=== PATIENT | female | born 1965 | race African-American/Black ===

== ENCOUNTER 2016-09-15 12:53 | Inpatient (IN) | payer OTHER ==
[2016-09-15 15:48] VITALS: BMI 29.2
--- NOTE | 2016-09-15 16:35 | HP ---
COWS - Scale Resting Pulse: 1= [place] 81-100 Sweatin=Flushed/Facial Moisture Restless Observation: 0= Sits Still Pupil Size: 1= Pupils >than Normal Bone or Joint Aches: 2= Severe Diffuse Aches Runny Nose/ Eye Tearin= Nasal Congestion GI Upset > 30mins: 1= Stomach Cramp Tremor Observation: 2= Slight Tremor Visible Yawning Observation: 0= None Anxiety or Irritability: 2=Irritable/Anxious Goose Flesh Skin: 3=Piloerection COWS Score: 15 Admission ROS [facility] - [facility] Chief Complaint: withdrawal sx Allergies/Adverse Reactions: Allergies Allergy/AdvReac Type Severity Reaction Status Date / Time Pork/Porcine Containing Allergy Severe Vomiting Verified 09/15/16 16:27 Products History of Present Illness: 50 years old female with long history of opiate and nicotine dependence, 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, bipolar ii, is admitted to detox Exam Limitations: No Limitations - Ebola screening Have you traveled outside of the country in the last 21 days: No Have you had contact with anyone from an Ebola affected area: No Have you been sick,other than usual withdrawal symptoms: No Do you have a fever: No - Review of Systems Constitutional: Chills, Night Sweats, Changes in sleep EENT: reports: Blurred Vision (needed eye glasses), Hearing Loss (left ear) Respiratory: reports: No Symptoms reported Cardiac: reports: No Symptoms Reported GI: reports: Nausea, Poor Fluid Intake, Abdominal cramping : reports: No Symptoms Reported Musculoskeletal: reports: Back Pain, Joint Pain, Muscle Pain, Neck Pain Integumentary: reports: No Symptoms Reported Neuro: reports: Tremors Endocrine: reports: No Symptoms Reported Hematology: reports: No Symptoms Reported Psychiatric: reports: Judgement Intact, Orientated x3, other (bipolar ii) Other Systems: Reviewed and Negative Patient History - Patient Medical History Hx Anemia: Yes (no med) Hx Asthma: No Hx Chronic Obstructive Pulmonary Disease (COPD): Yes Hx Cancer: No Hx Cardiac Disorders: No Hx Congestive Heart Failure: No Hx Hypertension: No Hx Hypercholesterolemia: No Hx Pacemaker: No HX Cerebrovascular Accident: No Hx Seizures: No Hx Dementia: No Hx Diabetes: No Hx Gastrointestinal Disorders: No Hx Liver Disease: No Hx Genitourinary Disorders: No Hx Sexually Transmitted Disorders: No (Syphilis 1987 & Tx) Hx Renal Disease (ESRD): No Hx Thyroid Disease: No Hx Human Immunodeficiency Virus (HIV): No (negative) Hx Hepatitis C: No Hx Depression: Yes Hx Suicide Attempt: Yes (Suicide attempt with Pills Jul 2015) Hx Bipolar Disorder: Yes Hx Schizophrenia: No - Patient Surgical History Past Surgical History: Yes Hx Neurologic Surgery: No Hx Cataract Extraction: No Hx Cardiac Surgery: No Hx Lung Surgery: No Hx Breast Surgery: No Hx Breast Biopsy: No Hx Abdominal Surgery: No Hx Appendectomy: No Hx Cholecystectomy: No Hx Genitourinary Surgery: No Hx Section: No Hx Orthopedic Surgery: Yes (rotator right shoulder 2004/right knee arthoscopic) Hx Hysterectomy: No Anesthesia Reaction: No - PPD History Previous Implant?: Yes Documented Results: Negative w/proof Implanted On Prior [facility] Admission?: Yes Date: 10/11/15 Results: 0 PPD to be Administered?: Yes - Reproductive History Patient is a Female of Child Bearing Age (11 -55 yrs old): Yes Last Menstrual Period: 09/21/15 Patient : No - Smoking Cessation Smoking history: Current every day smoker Have you smoked in the past 12 months: Yes Aproximately how many cigarettes per day: 10 Cigars Per Day: 0 Hx Chewing Tobacco Use: No Initiated information on smoking cessation: Yes 'Breaking Loose' booklet given: 09/15/16 - Substance & Tx. History Hx Alcohol Use: No Hx Substance Use: Yes Substance Use Type: Cocaine, Heroin, Opiates Hx Substance Use Treatment: Yes - Substances Abused Heroin Route: Inhalation Frequency: Daily Amount used: 10 BAGS Age of first use: 20 Date of Last Use: 09/15/16 Family Disease History - Family Disease History Family Disease History: Heart Disease: Mother, Other: Father ( ) Admission Physical Exam S - Vital Signs Vital Signs: Vital Signs - 24 hr 09/15/16 15:46 Temperature 96.4 F L Pulse Rate 90 Respiratory 18 Rate Blood Pressure 163/90 - Physical General Appearance: Yes: Nourished, Appropriately Dressed, Mild Distress, Tremorous, Irritable, Sweating, Anxious HEENTM: Yes: Hearing grossly Normal (left ear hard of hearing), Normal ENT Inspection, Normocephalic, Normal Voice Breast: Yes: Breasts Symetrical Abdominal: Yes: Non Tender, Soft Genitourinary: Yes: Within Normal Limits Back: Yes: Normal Inspection Musculoskeletal: Yes: full range of Motion, Gait Steady, Back pain Extremities: Yes: Normal Inspection, Normal Range of Motion, Non-Tender, Tremors Neurological: Yes: Fully Oriented, Alert, Motor Strength 5/5, Normal Response, Other Integumentary: Yes: Warm Lymphatic: Yes: Within Normal Limits - Diagnostic (1) Cocaine dependence Current Visit: Yes Status: Chronic Qualifiers: Substance use status: uncomplicated Qualified Code(s): F14.20 - Cocaine dependence, uncomplicated (2) Nicotine dependence Current Visit: Yes Status: Acute Qualifiers: Nicotine product type: cigarettes Substance use status: in withdrawal Qualified Code(s): F17.213 - Nicotine dependence, cigarettes, with withdrawal (3) Opioid dependence with withdrawal Current Visit: Yes Status: Acute (4) History of anemia Current Visit: Yes Status: Chronic Comment: lab pending (5) Bipolar II disorder Current Visit: Yes Status: Suspected Comment: lithium (6) Arthritis Current Visit: Yes Status: Chronic Comment: knees shoulders left ankle swell relieve by elevation of the leg Cleared for Admission [facility] - Detox or Rehab [facility] Level of Care: Medically Managed Detox Regimen/Protocol: Methadone [facility] Breath Alcohol Content Breath Alcohol Content: 0 Vital Signs - Vital Signs Vital Signs Refused: No Temperature: 96.4 F Temperature Source: Oral Pulse Rate: 90 Respiratory Rate: 18 Blood Pressure: 163/90 BP Location: Left Arm Blood Pressure Position: Sitting - Height Height: 5 ft 2 in - Weight Weight: 160 lb Weight Measurement Method: Standing Scale Body Mass Index (BMI): 29.2 - Bowel Function Bowel Movement: Yes Urine Pregancy Test - Result Urine Test Results: Negative- NO Line Present Urine Drug Screen - Control Is Test Valid: Yes - Results Drug Screen Negative: No Urine Drug Screen Results: DAKSHA-Cocaine, OPI-Opiates, OXY-Oxycodone
[2016-09-15] MEDS ORDERED: MAGNESIUM CITRATE 300 ML BOTTLE PO PRN (16:48)
[2016-09-15] MEDS ORDERED: LOPERAMIDE HCL 2 MG CAPSULE PO PRN (16:48)
[2016-09-15] MEDS ORDERED: MAG HYDROX/AL HYDROX/SIMETH 30 ML UNIT-DOSE CUP PO PRN (16:48)
[2016-09-15] MEDS ORDERED: NICOTINE POLACRILEX 2 MG GUM BUC PRN (16:48)
[2016-09-15] MEDS ORDERED: guaiFENesin/D-METHORPHAN HB 10 ML UNIT-DOSE CUPS PO PRN (16:48)
[2016-09-15] MEDS ORDERED: IBUPROFEN 400 MG TABLET (FP) PO PRN (16:48)
[2016-09-15] MEDS ORDERED: ACETAMINOPHEN 325 MG TABLET (FP) PO PRN (16:48)
[2016-09-15] MEDS ORDERED: MENTHOL/PHENOL 1 EACH UD MM PRN (16:48)
[2016-09-15] MEDS ORDERED: P-EPHED 60MG/TRIPROLIDI 2.5MG TABLET PO PRN (16:48)
[2016-09-15] MEDS ORDERED: MAGNESIUM HYDROX 2400MG/30ML ORAL SUSPENSION 30 ML CUP PO PRN (16:48)
[2016-09-15] MEDS ORDERED: METHADONE HCL 10 MG TABLET (FOR DETOX USE ONLY) PO ONE ×2 (18:15→23:00)
[2016-09-15] MEDS: diazePAM 5 MG TABLET PO PRN (18:27)
[2016-09-15 20:30] LABS: URINE APPEARANCE CLEAR; URINE BILIRUBIN NEGATIVE (NEGATIVE); URINE COLOR YELLOW; URINE GLUCOSE (UA) NEGATIVE (NEGATIVE); URINE KETONE NEGATIVE (NEGATIVE); URINE LEUK ESTERASE NEGATIVE (NEGATIVE); URINE NITRITE NEGATIVE (NEGATIVE); URINE PROTEIN NEGATIVE (NEGATIVE); URINE UROBILINOGEN NEGATIVE E.U./dl (0.2-1.0)
[2016-09-15 20:40] LABS: URINE BLOOD 1+ (NEGATIVE)
[2016-09-15 20:45] LABS: URINE MUCUS RARE; URINE RBC 15 /hpf (0-3); URINE WBC 14 /hpf (3-5)
[2016-09-15] MEDS ORDERED: diphenhydrAMINE HCL 50 MG CAPSULE PO PRN (22:00)
[2016-09-15] MEDS: THIAMINE HCL 100 MG TABLET (FP) PO SCH (22:20)
--- NOTE | 2016-09-16 07:56 | CONSULT ---
[facility] Psychiatric Consult - Data Date of interview: 09/16/16 Admission source: [facility] Identifying data: This is 50 years old female with Bipolar disorder history, intoxicated with: Opioids anhd Nicotine Substance Abuse History: - Smoking Cessation. Smoking history: Current every day smoker. Have you smoked in the past 12 months: Yes. Aproximately how many cigarettes per day: 10. Cigars Per Day: 0. Hx Chewing Tobacco Use: No. Initiated information on smoking cessation: Yes. 'Breaking Loose' booklet given : 09/15/16. - Substance & Tx. History. Hx Alcohol Use: No. Hx Substance Use: Yes. Substance Use Type: Cocaine, Heroin, Opiates. Hx Substance Use Treatment : Yes. - Substances Abused. Heroin. Route: Inhalation. Frequency: Daily. Amount used: 10 BAGS. Age of first use: 20. Date of Last Use: 09/15/16 Medical History: Arthritid history, MMTP 20mg per day, Psychiatric History: Patient reports history of Bipolar disorder, reports most recent psychioatric admission on [facility] 10 years ago, reports currently taking: Buspar 15mg po bid. Trazodone 100mg po qhs. Ambien 10mg po qhs. Topamax 25mg poqd. Lamictal 50mg poqd Physical/Sexual Abuse/Trauma History: Denies Additional Comment: Buspar 15mg po bid. Trazodone 100mg po qhs. Ambien 10mg po qhs. Topamax 25mg poqd. Lamictal 50mg poqd Mental Status Exam - Mental Status Exam Alert and Oriented to: Person Patient Appearance: Unkempt Mood: Sad Affect: Flat Patient Behavior: Sedated Speech Pattern: Delayed Voice Loudness: Mildly Soft/Quiet Thought Process: Goal Oriented Thought Disorder: Being Controlled Hallucinations: Denies Suicidal Ideation: Denies Homicidal Ideation: Denies Insight/Judgement: Fair Sleep: Difficulty falling asleep Appetite: Fair Muscle strength/Tone: Mild Hypotonicity Gait/Station: Shuffling Additional Comments: Buspar 15mg po bid. Trazodone 100mg po qhs. Ambien 10mg po qhs. Topamax 25mg poqd. Lamictal 50mg poqd Psychiatric Findings - Problem List ([place] 1, 2,3) (1) Nicotine dependence Current Visit: Yes Status: Acute Qualifiers: Nicotine product type: cigarettes Substance use status: in withdrawal Qualified Code(s): F17.213 - Nicotine dependence, cigarettes, with withdrawal (2) Opioid dependence with withdrawal Current Visit: Yes Status: Acute (3) Cocaine dependence Current Visit: Yes Status: Chronic Qualifiers: Substance use status: uncomplicated Qualified Code(s): F14.20 - Cocaine dependence, uncomplicated (4) Alcohol dependence Current Visit: No Status: Chronic Qualifiers: Substance use status: uncomplicated Qualified Code(s): F10.20 - Alcohol dependence, uncomplicated (5) Bipolar I disorder, most recent episode depressed Current Visit: No Status: Chronic (6) Methadone maintenance therapy patient Current Visit: No Status: Chronic Comment: last dose given on 10/15/15 with 40mg daily. dose verified (7) Opioid dependence Current Visit: No Status: Chronic - Initial Treatment Plan Initial Treatment Plan: Buspar 15mg po bid. Trazodone 100mg po qhs. Ambien 10mg po qhs. Topamax 25mg poqd. Lamictal 50mg poqd
[2016-09-16] MEDS ORDERED: METHADONE HCL 10 MG TABLET (FOR DETOX USE ONLY) PO ONE (10:00)
[2016-09-16 10:15] LABS: MCH 35.1 pg (25.7-33.7); MCHC 34.3 g/dl (32.0-36.0); MEAN CELL VOLUME 102.5 fl (80-96); PLATELET COUNT 251 K/MM3 (134-434); RDW 13.4 % (11.6-15.6); WHITE BLOOD COUNT 6.5 K/mm3 (4.0-10.0)
[2016-09-16] MEDS: diazePAM 5 MG TABLET PO PRN ×2 (10:27→18:05)
[2016-09-16] MEDS: PRENATAL VITAMINS W/ FOLIC ACID TABLET (FP) PO SCH (10:27)
[2016-09-16] MEDS: cloNIDine HCL 0.1 MG TABLET PO PRN (10:27)
[2016-09-16] MEDS: CYCLOBENZAPRINE HCL 10 MG TABLET (FP) PO PRN (10:27)
--- NOTE | 2016-09-16 10:27 | PN ---
BHS COWS - Scale Resting Pulse: 1= [place] 81-100 Sweatin=Flushed/Facial Moisture Restless Observation: 0= Sits Still Pupil Size: 0= Normal to Room Light Bone or Joint Aches: 2= Severe Diffuse Aches Runny Nose/ Eye Tearin= Nasal Congestion GI Upset > 30mins: 1= Stomach Cramp Tremor Observation of Outstretched Hands: 2= Slight Tremor Visible Yawning Observation: 2= >3x During Session Anxiety or Irritability: 2=Irritable/Anxious Goose Flesh Skin: 3=Piloerection COWS Score: 16 BHS Progress Note (SOAP) Subjective: irritable agitation sweats body aches tired interrupted sleep Objective: 09/16/16 10:25 Vital Signs Temperature 98.4 F 09/16/16 09:46 Pulse Rate 86 09/16/16 09:46 Respiratory Rate 18 09/16/16 09:46 Blood Pressure 141/75 09/16/16 09:46 O2 Sat by Pulse Oximetry (%) Laboratory Tests 09/15/16 19:45 Urine Color Yellow Urine Appearance Clear Urine pH 6.0 Ur Specific [place] 1.021 Urine Protein Negative Urine Glucose (UA) Negative Urine Ketones Negative Urine Blood 1+ H Urine Nitrite Negative Urine Bilirubin Negative Urine Urobilinogen Negative Ur Leukocyte Esterase Negative Urine RBC 15 Urine WBC 14 Ur Epithelial Cells Rare Urine Mucus Rare labs pending awake/alert ambulating no acute distress Assessment: 09/16/16 10:26 withdrawal sx Plan: continue detox increase fluids labs pending
[2016-09-16] MEDS: NICOTINE 21 MG/24 HOURS TOPICAL PATCH TD SCH (10:28)
[2016-09-16] MEDS: lamoTRIgine 25 MG TABLET PO SCH (10:28)
[2016-09-16] MEDS: TOPIRAMATE 25 MG TABLET (FP) PO SCH (10:29)
[2016-09-16 10:40] LABS: ALBUMIN 3.5 g/dl (3.4-5.0); ALK PHOS 57 U/L (45-117); ANION GAP 8 (8-16); BILIRUBIN,TOTAL 0.4 mg/dL (0.2-1.0); CALCIUM 8.4 mg/dL (8.5-10.1); CO2 27 mmol/L (21-32); CREATININE 0.7 mg/dL (0.55-1.02); GLUCOSE,RANDOM 87 mg/dL (74-106); SGOT/AST 15 U/L (15-37); SGPT/ALT 18 U/L (12-78); TOT PROT 6.6 g/dl (6.4-8.2)
--- NOTE | 2016-09-16 13:21 | EKG ---
Test Reason : Blood Pressure : / mmHG Vent. Rate : 080 BPM Atrial Rate : 080 BPM P-R Int : 148 ms QRS Dur : 076 ms QT Int : 356 ms P-R-T Axes : 070 031 018 degrees QTc Int : 410 ms NORMAL SINUS RHYTHM NONSPECIFIC T WAVE ABNORMALITY ABNORMAL ECG NO PREVIOUS ECGS AVAILABLE Confirmed by JERI CHAVEZ MD ([id number]) on 09/16/2016 1:21:12 PM Referred By: Confirmed By:JERI CHAVEZ MD
[2016-09-16] MEDS ORDERED: ZOLPIDEM TARTRATE 10 MG TABLET (PARK CARE ONLY) PO PRN (22:00)
[2016-09-16] MEDS: traZODone HCL 100 MG TABLET (FP) PO SCH (22:28)
[2016-09-16] MEDS: THIAMINE HCL 100 MG TABLET (FP) PO SCH (22:29)
[2016-09-17] MEDS ORDERED: diphenhydrAMINE HCL 25 MG CAPSULE (FP) PO ONE (01:04)
[2016-09-17] MEDS: diazePAM 5 MG TABLET PO PRN ×2 (01:05→10:44)
[2016-09-17] MEDS ORDERED: METHADONE HCL 5 MG TABLET (FOR DETOX USE ONLY) PO ONE (10:00)
--- NOTE | 2016-09-17 10:11 | PN ---
BHS COWS - Scale Resting Pulse: 1= [place] 81-100 Sweatin=Flushed/Facial Moisture Restless Observation: 1= Difficult to Sit Still Pupil Size: 0= Normal to Room Light Bone or Joint Aches: 2= Severe Diffuse Aches Runny Nose/ Eye Tearin= Nasal Congestion GI Upset > 30mins: 0= None Tremor Observation of Outstretched Hands: 2= Slight Tremor Visible Yawning Observation: 2= >3x During Session Anxiety or Irritability: 2=Irritable/Anxious Goose Flesh Skin: 0=Smooth Skin COWS Score: 13 BHS Progress Note (SOAP) Subjective: agitation anxiety sweats irritable Objective: 09/17/16 10:10 Vital Signs Temperature 99.1 F 09/17/16 09:29 Pulse Rate 89 09/17/16 09:29 Respiratory Rate 18 09/17/16 09:29 Blood Pressure 130/96 09/17/16 09:29 O2 Sat by Pulse Oximetry (%) Laboratory Tests 09/15/16 09/16/16 09/16/16 19:45 06:00 06:00 WBC 6.5 RBC 3.24 L Hgb 11.4 D Hct 33.2 MCV 102.5 H MCHC 34.3 RDW 13.4 Plt Count 251 MPV 9.0 Sodium 140 Potassium 4.0 Chloride 105 Carbon Dioxide 27 Anion Gap 8 BUN 17 D Creatinine 0.7 Creat Clearance w eGFR > 60 Random Glucose 87 Calcium 8.4 L Total Bilirubin 0.4 AST 15 D ALT 18 D Alkaline Phosphatase 57 D Total Protein 6.6 Albumin 3.5 Urine Color Yellow Urine Appearance Clear Urine pH 6.0 Ur Specific [place] 1.021 Urine Protein Negative Urine Glucose (UA) Negative Urine Ketones Negative Urine Blood 1+ H Urine Nitrite Negative Urine Bilirubin Negative Urine Urobilinogen Negative Ur Leukocyte Esterase Negative Urine RBC 15 Urine WBC 14 Ur Epithelial Cells Rare Urine Mucus Rare RPR Titer T.pallidum Ab ([facility]) 09/16/16 06:00 WBC RBC Hgb Hct MCV MCHC RDW Plt Count MPV Sodium Potassium Chloride Carbon Dioxide Anion Gap BUN Creatinine Creat Clearance w eGFR Random Glucose Calcium Total Bilirubin AST ALT Alkaline Phosphatase Total Protein Albumin Urine Color Urine Appearance Urine pH Ur Specific [place] Urine Protein Urine Glucose (UA) Urine Ketones Urine Blood Urine Nitrite Urine Bilirubin Urine Urobilinogen Ur Leukocyte Esterase Urine RBC Urine WBC Ur Epithelial Cells Urine Mucus RPR Titer Reactive 1:2 H T.pallidum Ab ([facility]) Previously reactive awake/alert ambulating no acute distress Assessment: 09/17/16 10:10 withdrawal sx Plan: continue detox increase fluids
[2016-09-17] MEDS: cloNIDine HCL 0.1 MG TABLET PO PRN (10:44)
[2016-09-17] MEDS: lamoTRIgine 25 MG TABLET PO SCH (10:44)
[2016-09-17] MEDS: PRENATAL VITAMINS W/ FOLIC ACID TABLET (FP) PO SCH (10:44)
[2016-09-17] MEDS: CYCLOBENZAPRINE HCL 10 MG TABLET (FP) PO PRN (10:44)
[2016-09-17] MEDS: NICOTINE 21 MG/24 HOURS TOPICAL PATCH TD SCH (10:45)
[2016-09-17] MEDS: TOPIRAMATE 25 MG TABLET (FP) PO SCH (10:45)
[2016-09-17] MEDS: traZODone HCL 100 MG TABLET (FP) PO SCH (22:16)
[2016-09-17] MEDS: THIAMINE HCL 100 MG TABLET (FP) PO SCH (22:16)
--- NOTE | 2016-09-18 09:57 | PN ---
S Progress Note (SOAP) Subjective: ALERT,IRRITABLE,ANXIOUS,INTERRUPTED SLEEP,TREMOR,INTERRUPTED SLEEP Objective: 09/18/16 09:56 Vital Signs Temperature 98.1 F 09/18/16 06:00 Pulse Rate 96 H 09/18/16 06:00 Respiratory Rate 18 09/18/16 06:00 Blood Pressure 92/69 09/18/16 06:00 O2 Sat by Pulse Oximetry (%) Assessment: 09/18/16 09:56 WITHDRAWAL SYMPTOM Plan: CONTINUE DETOX
[2016-09-18] MEDS ORDERED: METHADONE HCL 5 MG TABLET (FOR DETOX USE ONLY) PO ONE (10:00)
--- NOTE | 2016-09-18 10:00 | PN ---
S Progress Note Note: PATIENT DID NOT WANT TO COMPLETE TREATMENT,SIGNED RELEASE AMA,STATED SHE IS NOT READY TO COMPLETE TREATMENT,SEEN BY COUNSELOR
--- NOTE | 2016-09-18 10:02 | DS ---
[facility] Detox Discharge Summary Admission Date: 09/15/16 Discharge Date: 09/18/16 - History Present History: Cocaine Dependence, Opioid Dependence Additional Comments: PATIENT DID NOT WANT TO COMPLETE TREATMENT,SEEN BY COUNSELOR,SIGNED RELEASE AMA Pertinent Past History: NICOTINE DEPENDENCE BI[POLAR 2 DISORDER ARTHRITIS - Physical Exam Results Vital Signs: Vital Signs Temperature 98.1 F 09/18/16 06:00 Pulse Rate 96 H 09/18/16 06:00 Respiratory Rate 18 09/18/16 06:00 Blood Pressure 92/69 09/18/16 06:00 O2 Sat by Pulse Oximetry (%) Pertinent Admission Physical Exam Findings: WITHDRAWAL SYMPTOM - Medication Discharge Medications: Ambulatory Orders Topiramate [Topamax] 25 mg PO DAILY 10/17/15 Zolpidem Tartrate [Ambien] 10 mg PO DAILY 10/17/15 Buspirone HCl [Buspar -] 20 mg PO BID #120 tablet 11/08/15 Lamotrigine [Lamictal -] 50 mg PO DAILY #60 tablet 11/08/15 Trazodone HCl [Desyrel -] 100 mg PO HS #30 tablet 11/08/15 Buspirone HCl [Buspar -] 15 mg PO BID #60 tablet 09/16/16 Lamotrigine [Lamictal -] 50 mg PO DAILY #30 tablet 09/16/16 Topiramate [Topamax -] 25 mg PO DAILY #30 tablet 09/16/16 Trazodone HCl [Desyrel -] 100 mg PO HS #30 tablet 09/16/16 Zolpidem Tartrate [Ambien] 0 mg PO HS #14 tablet MDD 10 09/16/16 Zolpidem Tartrate [Ambien] 0 mg PO HS #14 tablet MDD 10 09/16/16 Zolpidem Tartrate [Ambien] 0 mg PO HS #14 tablet MDD 10 09/16/16 Zolpidem Tartrate [Ambien] 10 mg PO HS #14 tablet MDD 10 09/16/16 - AMA Did Patient Leave Against Medical Advice: Yes
[2016-09-18] MEDS: TOPIRAMATE 25 MG TABLET (FP) PO SCH (10:06)
[2016-09-18] MEDS: cloNIDine HCL 0.1 MG TABLET PO PRN (10:06)
[2016-09-18] MEDS: PRENATAL VITAMINS W/ FOLIC ACID TABLET (FP) PO SCH (10:06)
[2016-09-18] MEDS: lamoTRIgine 25 MG TABLET PO SCH (10:06)
[2016-09-18] MEDS: CYCLOBENZAPRINE HCL 10 MG TABLET (FP) PO PRN (10:26)
[2016-09-18] MEDS: NICOTINE 21 MG/24 HOURS TOPICAL PATCH TD SCH (10:26)
[2016-09-18] MEDS: diazePAM 5 MG TABLET PO PRN (10:26)
[2016-09-18 11:16] VITALS: BP 106/63; PULSE 92; TEMP 98.2
[2016-09-19] MEDS ORDERED: METHADONE HCL 10 MG TABLET (FOR DETOX USE ONLY) PO ONE (10:00)
[2016-09-20] MEDS ORDERED: METHADONE HCL 5 MG TABLET (FOR DETOX USE ONLY) PO ONE (06:00)
== END 2016-09-18 11:19 | disposition left against medical advice (07) | DRG 770 ==
LOC: YASAS 12:53 → Y6N 17:21
PROVIDERS: ADMIT Internal Medicine Addiction Medicine; ATTEND Internal Medicine Addiction Medicine
PROC: HZ2ZZZZ Detoxification Services for Substance Abuse Treatment (ICD-10-PCS; principal; 2016-09-18)
DX: F11.23 Opioid dependence with withdrawal (principal); F10.20 Alcohol dependence, uncomplicated; F14.20 Cocaine dependence, uncomplicated; F31.89 Other bipolar disorder
CPT/HCPCS: 36415; 80053; 80178; 81003; 81015; 85027; 86593; 86780; 93005; 93010

== ENCOUNTER 2016-12-01 14:04 | Inpatient (IN) | payer OTHER ==
[2016-12-01 16:46] VITALS: BMI 27.1
[2016-12-01] MEDS ORDERED: METHADONE HCL 10 MG TABLET (FOR DETOX USE ONLY) PO ONE ×2 (19:37→23:00)
[2016-12-01] MEDS ORDERED: guaiFENesin/D-METHORPHAN HB 10 ML UNIT-DOSE CUPS PO PRN (19:37)
[2016-12-01] MEDS ORDERED: NICOTINE POLACRILEX 2 MG GUM BUC PRN (19:37)
[2016-12-01] MEDS ORDERED: MAGNESIUM HYDROX 2400MG/30ML ORAL SUSPENSION 30 ML CUP PO PRN (19:37)
[2016-12-01] MEDS ORDERED: MENTHOL/PHENOL 1 EACH UD MM PRN (19:37)
[2016-12-01] MEDS ORDERED: MAG HYDROX/AL HYDROX/SIMETH 30 ML UNIT-DOSE CUP PO PRN (19:37)
[2016-12-01] MEDS ORDERED: LOPERAMIDE HCL 2 MG CAPSULE PO PRN (19:37)
[2016-12-01] MEDS ORDERED: ACETAMINOPHEN 325 MG TABLET (FP) PO PRN (19:37)
[2016-12-01] MEDS ORDERED: diphenhydrAMINE HCL 50 MG CAPSULE PO PRN (19:37)
[2016-12-01] MEDS ORDERED: P-EPHED 60MG/TRIPROLIDI 2.5MG TABLET PO PRN (19:37)
[2016-12-01] MEDS ORDERED: IBUPROFEN 400 MG TABLET (FP) PO PRN (19:37)
[2016-12-01] MEDS ORDERED: MAGNESIUM CITRATE 300 ML BOTTLE PO PRN (19:37)
--- NOTE | 2016-12-01 19:37 | HP ---
[id number] [id number] Restless Observation: 1= Difficult to Sit Still Pupil Size: 0= Normal to Room Light Bone or Joint Aches: 2= Severe Diffuse Aches Runny Nose/ Eye Tearin= Runny Nose/Eyes GI Upset > 30mins: 2= Nausea/Diarrhea Tremor Observation: 2= Slight Tremor Visible Yawning Observation: 1= 1-2x During Session Anxiety or Irritability: 2=Irritable/Anxious Goose Flesh Skin: 0=Smooth Skin COWS Score: 14 Admission ROS S - HPI Chief Complaint: withdrawal sx Allergies/Adverse Reactions: Allergies Allergy/AdvReac Type Severity Reaction Status Date / Time Pork/Porcine Containing Allergy Severe Vomiting Verified 12/01/16 17:06 Products History of Present Illness: 51 years old female with long history of opiate nicotine cocaine dependence denies medical issue has depression is admitted to detox Exam Limitations: No Limitations - Ebola screening Have you traveled outside of the country in the last 21 days: No Have you had contact with anyone from an Ebola affected area: No Have you been sick,other than usual withdrawal symptoms: No Do you have a fever: No - Review of Systems Constitutional: Chills, Changes in sleep, Weight Stable EENT: reports: Other (eye glasses) Respiratory: reports: No Symptoms reported Cardiac: reports: No Symptoms Reported GI: reports: Nausea, Poor Fluid Intake, Abdominal cramping : reports: No Symptoms Reported Musculoskeletal: reports: Back Pain, Joint Pain, Muscle Pain, Neck Pain Integumentary: reports: No Symptoms Reported Neuro: reports: Tremors Endocrine: reports: No Symptoms Reported Hematology: reports: No Symptoms Reported Psychiatric: reports: Judgement Intact, Orientated x3, Depressed Other Systems: Reviewed and Negative Patient History - Patient Medical History Hx Anemia: Yes (no med) Hx Asthma: No Hx Chronic Obstructive Pulmonary Disease (COPD): No Hx Cancer: No Hx Cardiac Disorders: No Hx Congestive Heart Failure: No Hx Hypertension: No Hx Hypercholesterolemia: No Hx Pacemaker: No HX Cerebrovascular Accident: No Hx Seizures: No Hx Dementia: No Hx Diabetes: No Hx Gastrointestinal Disorders: No Hx Liver Disease: No Hx Genitourinary Disorders: No Hx Sexually Transmitted Disorders: No (Syphilis 1988 & Tx) Hx Renal Disease (ESRD): No Hx Thyroid Disease: No Hx Human Immunodeficiency Virus (HIV): No (negative) Hx Hepatitis C: No Hx Depression: No Hx Suicide Attempt: Yes (Suicide attempt with Pills Jul 2015) Hx Bipolar Disorder: Yes Hx Schizophrenia: No - Patient Surgical History Past Surgical History: Yes Hx Neurologic Surgery: No Hx Cataract Extraction: No Hx Cardiac Surgery: No Hx Lung Surgery: No Hx Breast Surgery: No Hx Breast Biopsy: No Hx Abdominal Surgery: No Hx Appendectomy: No Hx Cholecystectomy: No Hx Genitourinary Surgery: No Hx Section: No Hx Orthopedic Surgery: Yes (rotator right shoulder 2004/right knee arthoscopic) Hx Hysterectomy: No Other Surgical History: R knee arthroscopic sx Anesthesia Reaction: No - PPD History Previous Implant?: Yes Documented Results: Negative w/proof Implanted On Prior R Admission?: Yes Date: 09/17/16 Results: 0 PPD to be Administered?: No - Reproductive History Patient is a Female of Child Bearing Age (11 -55 yrs old): Yes Last Menstrual Period: 10/28/16 Patient : No - Smoking Cessation Smoking history: Current every day smoker Have you smoked in the past 12 months: Yes Aproximately how many cigarettes per day: 10 Cigars Per Day: 0 Hx Chewing Tobacco Use: No Initiated information on smoking cessation: Yes 'Breaking Loose' booklet given: 12/01/16 - Substance & Tx. History Hx Alcohol Use: No Hx Substance Use: Yes Substance Use Type: Cocaine, Opiates Hx Substance Use Treatment: Yes - Substances Abused Heroin Route: Inhalation Frequency: Daily Amount used: 10 BAGS Age of first use: 20 Date of Last Use: 12/01/16 Family Disease History - Family Disease History Family Disease History: Heart Disease: Mother, Other: Father ( ) Admission Physical Exam S - Vital Signs Vital Signs: Vital Signs - 24 hr 12/01/16 16:44 Temperature 98.3 F Pulse Rate 88 Respiratory 20 Rate Blood Pressure 128/95 - Physical General Appearance: Yes: Nourished, Appropriately Dressed, Mild Distress, Tremorous, Irritable, Sweating, Anxious HEENTM: Yes: Hearing grossly Normal, Normal ENT Inspection, Normocephalic, Normal Voice Respiratory: Yes: Chest Non-Tender, Lungs Clear, Normal Breath Sounds, No Respiratory Distress, No Accessory Muscle Use Neck: Yes: Supple, Trachea in good position Breast: Yes: Breasts Symetrical Cardiology: Yes: Regular Rhythm, Regular Rate, S1, S2 Abdominal: Yes: Non Tender, Soft Genitourinary: Yes: Within Normal Limits Musculoskeletal: Yes: full range of Motion, Gait Steady, Back pain, Muscle Pain Extremities: Yes: Normal Inspection, Normal Range of Motion, Non-Tender, Tremors Neurological: Yes: Fully Oriented, Alert, Motor Strength 5/5, Normal Mood/Affect , Normal Response Integumentary: Yes: Warm Lymphatic: Yes: Within Normal Limits - Diagnostic (1) Nicotine dependence Current Visit: Yes Status: Acute Qualifiers: Nicotine product type: cigarettes Substance use status: in withdrawal Qualified Code(s): F17.213 - Nicotine dependence, cigarettes, with withdrawal (2) Opioid dependence with withdrawal Current Visit: Yes Status: Acute (3) History of anemia Current Visit: Yes Status: Resolved Comment: lab pending (4) Bipolar II disorder Current Visit: Yes Status: Suspected Comment: lithium (5) Cocaine dependence, uncomplicated Current Visit: Yes Status: Chronic Cleared for Admission [facility] - Detox or Rehab [facility] Level of Care: Medically Managed Detox Regimen/Protocol: Methadone [facility] Breath Alcohol Content Breath Alcohol Content: 0 Urine Pregancy Test - Result Urine Test Results: Negative- NO Line Present Urine Drug Screen - Results Drug Screen Negative: No Urine Drug Screen Results: DAKSHA-Cocaine, OPI-Opiates
[2016-12-01] MEDS: diazePAM 5 MG TABLET PO PRN (20:58)
[2016-12-01] MEDS: THIAMINE HCL 100 MG TABLET (FP) PO SCH (22:37)
[2016-12-01 23:29] LABS: URINE APPEARANCE CLEAR; URINE BILIRUBIN NEGATIVE (NEGATIVE); URINE COLOR YELLOW; URINE GLUCOSE (UA) NEGATIVE (NEGATIVE); URINE KETONE NEGATIVE (NEGATIVE); URINE LEUK ESTERASE NEGATIVE (NEGATIVE); URINE NITRITE NEGATIVE (NEGATIVE); URINE PROTEIN NEGATIVE (NEGATIVE); URINE UROBILINOGEN NEGATIVE E.U./dl (0.2-1.0)
[2016-12-01 23:35] LABS: URINE BLOOD 1+ (NEGATIVE)
[2016-12-01 23:39] LABS: CALCIUM OXALATE CRYSTALS FEW /hpf (NONE SEEN); URINE MUCUS FEW; URINE RBC 3 /hpf (0-3); URINE WBC 3 /hpf (3-5)
--- NOTE | 2016-12-02 08:49 | CONSULT ---
[facility] Psychiatric Consult - Data Date of interview: 12/02/16 Admission source: [facility] Identifying data: This is 51 years old female with psychiatric hospitalization history intoxicated with: Opioids, Cocaine and Nicotine Substance Abuse History: - Smoking Cessation. Smoking history: Current every day smoker. Have you smoked in the past 12 months: Yes. Aproximately how many cigarettes per day: 10. Cigars Per Day: 0. Hx Chewing Tobacco Use: No. Initiated information on smoking cessation: Yes. 'Breaking Loose' booklet given : 12/01/16. - Substance & Tx. History. Hx Alcohol Use: No. Hx Substance Use: Yes. Substance Use Type: Cocaine, Opiates. Hx Substance Use Treatment: Yes. - Substances Abused. Heroin. Route: Inhalation. Frequency: Daily. Amount used: 10 BAGS. Age of first use: 20. Date of Last Use: 12/01/16 Medical History: Anemia history, Arthritis history, MMTP history, Psychiatric History: Patient reports history of Bipolar Disorder with most recent psychiatric admission on more then 10 years ago, reports currently stablew on: Buspar 20mg po bid. \Lamictal 50mg poqd. Topamax 25 mg poqd. Trazodone 100mg poqd. Ambien 10mg po qhs Physical/Sexual Abuse/Trauma History: Denies Additional Comment: Buspar 20mg po bid. \Lamictal 50mg poqd. Topamax 25 mg poqd. Trazodone 100mg poqd. Ambien 10mg po qhs Mental Status Exam - Mental Status Exam Alert and Oriented to: Person Cognitive Function: Fair Patient Appearance: Unkempt Mood: Sad Patient Behavior: Sedated Speech Pattern: Delayed Voice Loudness: Mildly Soft/Quiet Thought Process: Circumstantial Thought Disorder: Being Controlled Hallucinations: Denies Suicidal Ideation: Denies Homicidal Ideation: Denies Insight/Judgement: Fair Sleep: Difficulty falling asleep Appetite: Weight gain Muscle strength/Tone: Mild Hypotonicity Gait/Station: Shuffling Additional Comments: Buspar 20mg po bid. \Lamictal 50mg poqd. Topamax 25 mg poqd. Trazodone 100mg poqd. Ambien 10mg po qhs Psychiatric Findings - Problem List ([place] 1, 2,3) (1) Nicotine dependence Current Visit: Yes Status: Acute Qualifiers: Nicotine product type: cigarettes Substance use status: in withdrawal Qualified Code(s): F17.213 - Nicotine dependence, cigarettes, with withdrawal (2) Opioid dependence with withdrawal Current Visit: Yes Status: Acute (3) Cocaine dependence, uncomplicated Current Visit: Yes Status: Chronic (4) Bipolar II disorder Current Visit: Yes Status: Suspected Comment: lithium (5) Alcohol dependence Current Visit: No Status: Chronic Qualifiers: Substance use status: uncomplicated Qualified Code(s): F10.20 - Alcohol dependence, uncomplicated (6) Bipolar I disorder, most recent episode depressed Current Visit: No Status: Chronic (7) Cocaine dependence Current Visit: No Status: Chronic Qualifiers: Substance use status: uncomplicated Qualified Code(s): F14.20 - Cocaine dependence, uncomplicated (8) Methadone maintenance therapy patient Current Visit: No Status: Chronic Comment: last dose given on 10/15/15 with 40mg daily. dose verified (9) Opioid dependence Current Visit: No Status: Chronic - Initial Treatment Plan Initial Treatment Plan: Buspar 20mg po bid. \Lamictal 50mg poqd. Topamax 25 mg poqd. Trazodone 100mg poqd. Ambien 10mg po qhs
[2016-12-02] MEDS ORDERED: METHADONE HCL 10 MG TABLET (FOR DETOX USE ONLY) PO ONE (10:00)
--- NOTE | 2016-12-02 10:01 | PN ---
[facility] COWS - Scale Resting Pulse: 0= [place] 80 or Below Sweatin= Chills/Flushing Restless Observation: 3= Extraneous Movement Pupil Size: 1= Pupils >than Normal Bone or Joint Aches: 2= Severe Diffuse Aches Runny Nose/ Eye Tearin= Runny Nose/Eyes GI Upset > 30mins: 3= Vomiting/Diarrhea Tremor Observation of Outstretched Hands: 2= Slight Tremor Visible Yawning Observation: 1= 1-2x During Session Anxiety or Irritability: 2=Irritable/Anxious Goose Flesh Skin: 0=Smooth Skin COWS Score: 17 S Progress Note (SOAP) Subjective: alert,irritable,anxious,interrupted sleep,tremor,pain in the body and back Objective: 12/02/16 09:59 Vital Signs Temperature 96.7 F L 12/02/16 05:50 Pulse Rate 72 12/02/16 05:50 Respiratory Rate 18 12/02/16 05:50 Blood Pressure 110/70 12/02/16 05:50 O2 Sat by Pulse Oximetry (%) ekg nsr,inverted t in 3,v3 no chest pain,no sob,no dizziness Laboratory Last Values Urine Color Yellow 12/01/16 22:07 Urine Appearance Clear 12/01/16 22:07 Urine pH 5.0 (5.0-8.0) 12/01/16 22:07 Ur Specific [place] 1.032 (1.001-1.035) 12/01/16 22:07 Urine Protein Negative (NEGATIVE) 12/01/16 22:07 Urine Glucose (UA) Negative (NEGATIVE) 12/01/16 22:07 Urine Ketones Negative (NEGATIVE) 12/01/16 22:07 Urine Blood 1+ (NEGATIVE) H 12/01/16 22:07 Urine Nitrite Negative (NEGATIVE) 12/01/16 22:07 Urine Bilirubin Negative (NEGATIVE) 12/01/16 22:07 Urine Urobilinogen Negative E.U./dl (0.2-1.0) 12/01/16 22:07 Ur Leukocyte Esterase Negative (NEGATIVE) 12/01/16 22:07 Urine RBC 3 /hpf (0-3) 12/01/16 22:07 Urine WBC 3 /hpf (3-5) 12/01/16 22:07 Ur Epithelial Cells Rare /hpf (FEW) 12/01/16 22:07 Calcium Oxalate Crystal Few /hpf (NONE SEEN) 12/01/16 22:07 Urine Mucus Few 12/01/16 22:07 labs pending Assessment: 12/02/16 10:00 withdrawal symptom Plan: continue detox
[2016-12-02 11:00] LABS: MCH 34.9 pg (25.7-33.7); MCHC 34.5 g/dl (32.0-36.0); MEAN PLT VOLUME 9.2 fl (7.5-11.1); PLATELET COUNT 291 K/MM3 (134-434); RDW 12.5 % (11.6-15.6)
[2016-12-02 11:02] LABS: ALBUMIN 3.9 g/dl (3.4-5.0); ALK PHOS 65 U/L (45-117); ANION GAP 7 (8-16); BILIRUBIN,TOTAL 0.7 mg/dL (0.2-1.0); CALCIUM 8.8 mg/dL (8.5-10.1); CO2 27 mmol/L (21-32); COCKROFT - GAULT 80.1295; CREATININE 0.9 mg/dL (0.55-1.02); GLUCOSE,RANDOM 104 mg/dL (74-106); SGOT/AST 19 U/L (15-37); SGPT/ALT 21 U/L (12-78); TOT PROT 7.1 g/dl (6.4-8.2)
[2016-12-02] MEDS: lamoTRIgine 25 MG TABLET PO SCH (11:03)
[2016-12-02] MEDS: TOPIRAMATE 25 MG TABLET (FP) PO SCH (11:03)
[2016-12-02] MEDS: PRENATAL VITAMINS W/ FOLIC ACID TABLET (FP) PO SCH (11:03)
[2016-12-02] MEDS: busPIRone HCL 10 MG TABLET (FP) PO SCH ×2 (11:03→22:32)
[2016-12-02] MEDS: NICOTINE 14 MG/24 HOURS TOPICAL PATCH TD SCH (11:04)
--- NOTE | 2016-12-02 13:10 | EKG ---
Test Reason : Blood Pressure : / mmHG Vent. Rate : 073 BPM Atrial Rate : 073 BPM P-R Int : 154 ms QRS Dur : 080 ms QT Int : 390 ms P-R-T Axes : 057 027 -08 degrees QTc Int : 429 ms NORMAL SINUS RHYTHM NONSPECIFIC T WAVE ABNORMALITY ABNORMAL ECG WHEN COMPARED WITH ECG OF 15-SEP-2016 18:33, NO SIGNIFICANT CHANGE WAS FOUND Confirmed by JERI CHAVEZ MD ([id number]) on 12/02/2016 1:09:44 PM Referred By: Confirmed By:JERI CHAVEZ MD
[2016-12-02] MEDS: diazePAM 5 MG TABLET PO PRN ×2 (13:21→17:37)
[2016-12-02] MEDS: ZOLPIDEM TARTRATE 10 MG TABLET (PARK CARE ONLY) PO PRN (22:32)
[2016-12-02] MEDS: THIAMINE HCL 100 MG TABLET (FP) PO SCH (22:32)
[2016-12-02] MEDS: traZODone HCL 100 MG TABLET (FP) PO SCH (22:33)
[2016-12-03] MEDS ORDERED: METHADONE HCL 5 MG TABLET (FOR DETOX USE ONLY) PO ONE (10:00)
[2016-12-03] MEDS: PRENATAL VITAMINS W/ FOLIC ACID TABLET (FP) PO SCH (10:25)
[2016-12-03] MEDS: TOPIRAMATE 25 MG TABLET (FP) PO SCH (10:25)
[2016-12-03] MEDS: busPIRone HCL 10 MG TABLET (FP) PO SCH ×2 (10:26→22:26)
[2016-12-03] MEDS: lamoTRIgine 25 MG TABLET PO SCH (10:26)
[2016-12-03] MEDS: NICOTINE 14 MG/24 HOURS TOPICAL PATCH TD SCH (10:26)
--- NOTE | 2016-12-03 11:01 | PN ---
[facility] COWS - Scale Resting Pulse: 0= [place] 80 or Below Sweatin= Chills/Flushing Restless Observation: 3= Extraneous Movement Pupil Size: 1= Pupils >than Normal Bone or Joint Aches: 2= Severe Diffuse Aches Runny Nose/ Eye Tearin= Runny Nose/Eyes GI Upset > 30mins: 2= Nausea/Diarrhea Tremor Observation of Outstretched Hands: 2= Slight Tremor Visible Yawning Observation: 1= 1-2x During Session Anxiety or Irritability: 2=Irritable/Anxious Goose Flesh Skin: 0=Smooth Skin COWS Score: 16 B[facility] Progress Note (SOAP) Subjective: ALERT,IRRITABLE,ANXIOUS,INTERRUPTED SLEEP,PAIN IN THE BODY Objective: 12/03/16 10:58 Vital Signs Temperature 97.7 F 12/03/16 09:51 Pulse Rate 78 12/03/16 09:51 Respiratory Rate 18 12/03/16 09:51 Blood Pressure 132/79 12/03/16 09:51 O2 Sat by Pulse Oximetry (%) Laboratory Last Values WBC 8.0 K/mm3 (4.0-10.0) 12/02/16 06:00 RBC 3.45 M/mm3 (3.60-5.2) L 12/02/16 06:00 Hgb 12.0 GM/dL (10.7-15.3) 12/02/16 06:00 Hct 34.8 % (32.4-45.2) 12/02/16 06:00 MCV 101.0 fl (80-96) H 12/02/16 06:00 MCHC 34.5 g/dl (32.0-36.0) 12/02/16 06:00 RDW 12.5 % (11.6-15.6) 12/02/16 06:00 Plt Count 291 K/MM3 (134-434) 12/02/16 06:00 MPV 9.2 fl (7.5-11.1) 12/02/16 06:00 Sodium 141 mmol/L (136-145) 12/02/16 06:00 Potassium 3.6 mmol/L (3.5-5.1) 12/02/16 06:00 Chloride 107 mmol/L (98-107) 12/02/16 06:00 Carbon Dioxide 27 mmol/L (21-32) 12/02/16 06:00 Anion Gap 7 (8-16) L 12/02/16 06:00 BUN 25 mg/dL (7-18) H D 12/02/16 06:00 Creatinine 0.9 mg/dL (0.55-1.02) D 12/02/16 06:00 Creat Clearance w eGFR > 60 (>60) 12/02/16 06:00 Random Glucose 104 mg/dL (74-106) 12/02/16 06:00 Calcium 8.8 mg/dL (8.5-10.1) 12/02/16 06:00 Total Bilirubin 0.7 mg/dL (0.2-1.0) D 12/02/16 06:00 AST 19 U/L (15-37) D 12/02/16 06:00 ALT 21 U/L (12-78) 12/02/16 06:00 Alkaline Phosphatase 65 U/L (45-117) 12/02/16 06:00 Total Protein 7.1 g/dl (6.4-8.2) 12/02/16 06:00 Albumin 3.9 g/dl (3.4-5.0) 12/02/16 06:00 Urine Color Yellow 12/01/16 22:07 Urine Appearance Clear 12/01/16 22:07 Urine pH 5.0 (5.0-8.0) 12/01/16 22:07 Ur Specific [place] 1.032 (1.001-1.035) 12/01/16 22:07 Urine Protein Negative (NEGATIVE) 12/01/16 22:07 Urine Glucose (UA) Negative (NEGATIVE) 12/01/16 22:07 Urine Ketones Negative (NEGATIVE) 12/01/16 22:07 Urine Blood 1+ (NEGATIVE) H 12/01/16 22:07 Urine Nitrite Negative (NEGATIVE) 12/01/16 22:07 Urine Bilirubin Negative (NEGATIVE) 12/01/16 22:07 Urine Urobilinogen Negative E.U./dl (0.2-1.0) 12/01/16 22:07 Ur Leukocyte Esterase Negative (NEGATIVE) 12/01/16 22:07 Urine RBC 3 /hpf (0-3) 12/01/16 22:07 Urine WBC 3 /hpf (3-5) 12/01/16 22:07 Ur Epithelial Cells Rare /hpf (FEW) 12/01/16 22:07 Calcium Oxalate Crystal Few /hpf (NONE SEEN) 12/01/16 22:07 Urine Mucus Few 12/01/16 22:07 RPR Titer Reactive 1:2 (NONREACTIVE) H 12/02/16 06:00 T.pallidum Ab (MHA) Previously reactive (NONREACTIVE) 12/02/16 06:00 PATIENT WAS ADEQUATELY TREATED FOR SYPHILIS IN THE PAST Assessment: 12/03/16 11:01 WITHDRAWAL SYMPTOM Plan: CONTINUE DETOX
[2016-12-03] MEDS: diazePAM 5 MG TABLET PO PRN (13:19)
[2016-12-03] MEDS: ZOLPIDEM TARTRATE 10 MG TABLET (PARK CARE ONLY) PO PRN (22:26)
[2016-12-03] MEDS: traZODone HCL 100 MG TABLET (FP) PO SCH (22:26)
[2016-12-03] MEDS: THIAMINE HCL 100 MG TABLET (FP) PO SCH (22:28)
--- NOTE | 2016-12-04 09:45 | PN ---
S Progress Note (SOAP) Subjective: ALERT,IRRITABLE,ANXIOUS,INTERRUPTED SLEEP Objective: 12/04/16 09:44 Vital Signs Temperature 97.7 F 12/04/16 06:04 Pulse Rate 87 12/04/16 06:04 Respiratory Rate 18 12/04/16 06:04 Blood Pressure 89/56 12/04/16 06:04 O2 Sat by Pulse Oximetry (%) Assessment: 12/04/16 09:45 WITHDRAWAL SYMPTOM Plan: CONTINUE DETOX
[2016-12-04] MEDS ORDERED: METHADONE HCL 5 MG TABLET (FOR DETOX USE ONLY) PO ONE (10:00)
[2016-12-04] MEDS: TOPIRAMATE 25 MG TABLET (FP) PO SCH (10:40)
[2016-12-04] MEDS: lamoTRIgine 25 MG TABLET PO SCH (10:40)
[2016-12-04] MEDS: PRENATAL VITAMINS W/ FOLIC ACID TABLET (FP) PO SCH (10:40)
[2016-12-04] MEDS: busPIRone HCL 10 MG TABLET (FP) PO SCH ×2 (10:40→22:31)
[2016-12-04] MEDS: NICOTINE 14 MG/24 HOURS TOPICAL PATCH TD SCH (10:41)
[2016-12-04] MEDS: diazePAM 5 MG TABLET PO PRN (18:38)
[2016-12-04] MEDS: traZODone HCL 100 MG TABLET (FP) PO SCH (22:31)
[2016-12-04] MEDS: THIAMINE HCL 100 MG TABLET (FP) PO SCH (22:31)
[2016-12-05] MEDS ORDERED: METHADONE HCL 10 MG TABLET (FOR DETOX USE ONLY) PO ONE (10:00)
[2016-12-05] MEDS: NICOTINE 14 MG/24 HOURS TOPICAL PATCH TD SCH (10:50)
[2016-12-05] MEDS: busPIRone HCL 10 MG TABLET (FP) PO SCH ×2 (11:05→22:30)
[2016-12-05] MEDS: PRENATAL VITAMINS W/ FOLIC ACID TABLET (FP) PO SCH (11:05)
[2016-12-05] MEDS: TOPIRAMATE 25 MG TABLET (FP) PO SCH (11:05)
[2016-12-05] MEDS: lamoTRIgine 25 MG TABLET PO SCH (11:05)
[2016-12-05] MEDS ORDERED: CYCLOBENZAPRINE HCL 10 MG TABLET (FP) PO PRN (11:26)
--- NOTE | 2016-12-05 16:32 | PN ---
B[facility] Progress Note (SOAP) Subjective: Fatigue, Sweating. Objective: PT. A & O X 3. 12/05/16 16:31 Vital Signs Temperature 97.9 F 12/05/16 14:21 Pulse Rate 95 H 12/05/16 14:21 Respiratory Rate 18 12/05/16 14:21 Blood Pressure 113/68 12/05/16 14:21 O2 Sat by Pulse Oximetry (%) Laboratory Last Values WBC 8.0 K/mm3 (4.0-10.0) 12/02/16 06:00 RBC 3.45 M/mm3 (3.60-5.2) L 12/02/16 06:00 Hgb 12.0 GM/dL (10.7-15.3) 12/02/16 06:00 Hct 34.8 % (32.4-45.2) 12/02/16 06:00 MCV 101.0 fl (80-96) H 12/02/16 06:00 MCHC 34.5 g/dl (32.0-36.0) 12/02/16 06:00 RDW 12.5 % (11.6-15.6) 12/02/16 06:00 Plt Count 291 K/MM3 (134-434) 12/02/16 06:00 MPV 9.2 fl (7.5-11.1) 12/02/16 06:00 Sodium 141 mmol/L (136-145) 12/02/16 06:00 Potassium 3.6 mmol/L (3.5-5.1) 12/02/16 06:00 Chloride 107 mmol/L (98-107) 12/02/16 06:00 Carbon Dioxide 27 mmol/L (21-32) 12/02/16 06:00 Anion Gap 7 (8-16) L 12/02/16 06:00 BUN 25 mg/dL (7-18) H D 12/02/16 06:00 Creatinine 0.9 mg/dL (0.55-1.02) D 12/02/16 06:00 Creat Clearance w eGFR > 60 (>60) 12/02/16 06:00 Random Glucose 104 mg/dL (74-106) 12/02/16 06:00 Calcium 8.8 mg/dL (8.5-10.1) 12/02/16 06:00 Total Bilirubin 0.7 mg/dL (0.2-1.0) D 12/02/16 06:00 AST 19 U/L (15-37) D 12/02/16 06:00 ALT 21 U/L (12-78) 12/02/16 06:00 Alkaline Phosphatase 65 U/L (45-117) 12/02/16 06:00 Total Protein 7.1 g/dl (6.4-8.2) 12/02/16 06:00 Albumin 3.9 g/dl (3.4-5.0) 12/02/16 06:00 Urine Color Yellow 12/01/16 22:07 Urine Appearance Clear 12/01/16 22:07 Urine pH 5.0 (5.0-8.0) 12/01/16 22:07 Ur Specific [place] 1.032 (1.001-1.035) 12/01/16 22:07 Urine Protein Negative (NEGATIVE) 12/01/16 22:07 Urine Glucose (UA) Negative (NEGATIVE) 12/01/16 22:07 Urine Ketones Negative (NEGATIVE) 12/01/16 22:07 Urine Blood 1+ (NEGATIVE) H 12/01/16 22:07 Urine Nitrite Negative (NEGATIVE) 12/01/16 22:07 Urine Bilirubin Negative (NEGATIVE) 12/01/16 22:07 Urine Urobilinogen Negative E.U./dl (0.2-1.0) 12/01/16 22:07 Ur Leukocyte Esterase Negative (NEGATIVE) 12/01/16 22:07 Urine RBC 3 /hpf (0-3) 12/01/16 22:07 Urine WBC 3 /hpf (3-5) 12/01/16 22:07 Ur Epithelial Cells Rare /hpf (FEW) 12/01/16 22:07 Calcium Oxalate Crystal Few /hpf (NONE SEEN) 12/01/16 22:07 Urine Mucus Few 12/01/16 22:07 RPR Titer Reactive 1:2 (NONREACTIVE) H 12/02/16 06:00 T.pallidum Ab (MHA) Previously reactive (NONREACTIVE) 12/02/16 06:00 LABS NOTED. PATIENT TREATED FOR SYPHYLLIS IN PAST. 12/05/16 16:33 Assessment: 12/05/16 16:32 WITHDRAWAL SYMPTOMS. Plan: CONTINUE DETOX. ADVISED PATIENT TO FOLLOW-UP WITH [facility] REPORTER / REHAB MEDICAL PROVIDER AFTER DISCHARGE FROM DETOX FOR GENERAL MEDICAL ASSESSMENT AND FOR ABNORMAL ADMISSION LAB VALUES.
[2016-12-05] MEDS: ZOLPIDEM TARTRATE 10 MG TABLET (PARK CARE ONLY) PO PRN (22:00)
[2016-12-05] MEDS: traZODone HCL 100 MG TABLET (FP) PO SCH (22:28)
[2016-12-05] MEDS: THIAMINE HCL 100 MG TABLET (FP) PO SCH (22:28)
[2016-12-06] MEDS ORDERED: METHADONE HCL 5 MG TABLET (FOR DETOX USE ONLY) PO ONE (06:00)
[2016-12-06 09:57] VITALS: BP 106/69; PULSE 93; TEMP 98.1
--- NOTE | 2016-12-06 13:12 | DS ---
[facility] Detox Discharge Summary Admission Date: 12/01/16 Discharge Date: 12/06/16 - History Present History: Opioid Dependence Pertinent Past History: Arthritis - Physical Exam Results Vital Signs: Vital Signs Temperature 98.1 F 12/06/16 09:56 Pulse Rate 93 H 12/06/16 09:56 Respiratory Rate 16 12/06/16 09:56 Blood Pressure 106/69 12/06/16 09:56 O2 Sat by Pulse Oximetry (%) Pertinent Admission Physical Exam Findings: Withdrawal sx. Laboratory Tests 12/01/16 12/02/16 12/02/16 22:07 06:00 06:00 WBC 8.0 RBC 3.45 L Hgb 12.0 Hct 34.8 MCV 101.0 H MCHC 34.5 RDW 12.5 Plt Count 291 MPV 9.2 Sodium 141 Potassium 3.6 Chloride 107 Carbon Dioxide 27 Anion Gap 7 L BUN 25 H D Creatinine 0.9 D Creat Clearance w eGFR > 60 Random Glucose 104 Calcium 8.8 Total Bilirubin 0.7 D AST 19 D ALT 21 Alkaline Phosphatase 65 Total Protein 7.1 Albumin 3.9 Urine Color Yellow Urine Appearance Clear Urine pH 5.0 Ur Specific [place] 1.032 Urine Protein Negative Urine Glucose (UA) Negative Urine Ketones Negative Urine Blood 1+ H Urine Nitrite Negative Urine Bilirubin Negative Urine Urobilinogen Negative Ur Leukocyte Esterase Negative Urine RBC 3 Urine WBC 3 Ur Epithelial Cells Rare Calcium Oxalate Crystal Few Urine Mucus Few RPR Titer T.pallidum Ab (MHA) 12/02/16 06:00 WBC RBC Hgb Hct MCV MCHC RDW Plt Count MPV Sodium Potassium Chloride Carbon Dioxide Anion Gap BUN Creatinine Creat Clearance w eGFR Random Glucose Calcium Total Bilirubin AST ALT Alkaline Phosphatase Total Protein Albumin Urine Color Urine Appearance Urine pH Ur Specific [place] Urine Protein Urine Glucose (UA) Urine Ketones Urine Blood Urine Nitrite Urine Bilirubin Urine Urobilinogen Ur Leukocyte Esterase Urine RBC Urine WBC Ur Epithelial Cells Calcium Oxalate Crystal Urine Mucus RPR Titer Reactive 1:2 H T.pallidum Ab (MHA) Previously reactive labs noted - Treatment Hospital Course: Detox Protocol Followed, Detoxed Safely, Responded well, Discharged Condition Good, Rehab Referral Accepted Patient has Accepted a Rehab Referral to: [facility] - Medication Discharge Medications: Ambulatory Orders Zolpidem Tartrate [Ambien] 10 mg PO DAILY 10/17/15 Buspirone HCl [Buspar -] 20 mg PO BID #120 tablet 11/08/15 Lamotrigine [Lamictal -] 50 mg PO DAILY #60 tablet 11/08/15 Trazodone HCl [Desyrel -] 100 mg PO HS #30 tablet 11/08/15 Topiramate [Topamax -] 25 mg PO DAILY #30 tablet 09/16/16 Buspirone HCl [Buspar -] 20 mg PO BID #60 tablet 12/02/16 Lamotrigine [Lamictal -] 50 mg PO DAILY #30 tablet 12/02/16 Topiramate [Topamax -] 50 mg PO DAILY #30 tablet 12/02/16 Trazodone HCl [Desyrel -] 100 mg PO HS #30 tablet 12/02/16 Zolpidem Tartrate [Ambien] 10 mg PO HS PRN #14 tablet MDD 10 12/02/16 - Diagnosis (1) Nicotine dependence Status: Acute Qualifiers: Nicotine product type: cigarettes Substance use status: in withdrawal Qualified Code(s): F17.213 - Nicotine dependence, cigarettes, with withdrawal (2) Opioid dependence with withdrawal Status: Acute (3) Arthritis Status: Chronic (4) Bipolar I disorder, most recent episode depressed Status: Chronic (5) Cocaine dependence, uncomplicated Status: Chronic (6) Bipolar II disorder Status: Suspected - AMA Did Patient Leave Against Medical Advice: No
== END 2016-12-06 09:50 | disposition home or self-care (01) | DRG 773 ==
LOC: YASAS 14:04 → Y6N 18:51
PROVIDERS: ADMIT Internal Medicine Addiction Medicine; ATTEND Internal Medicine Addiction Medicine
PROC: HZ2ZZZZ Detoxification Services for Substance Abuse Treatment (ICD-10-PCS; principal; 2016-12-01)
DX: F11.23 Opioid dependence with withdrawal (principal); F14.20 Cocaine dependence, uncomplicated; F17.213 Nicotine dependence, cigarettes, with withdrawal; F31.81 Bipolar II disorder; M19.90 Unspecified osteoarthritis, unspecified site; Z87.42 Personal history of other diseases of the female genital tract; Z86.2 Personal history of diseases of the blood and blood-forming organs and certain disorders involving the immune mechanism; Z91.5 Personal history of self-harm
CPT/HCPCS: 36415; 80053; 81003; 81015; 85027; 86593; 86780; 93005; 93010

== ENCOUNTER 2021-03-24 13:36 | Inpatient (IN) | payer OTHER ==
[2021-03-24] MEDS ORDERED: cloNIDine HCL 0.1 MG TABLET PO PRN (15:02)
[2021-03-24] MEDS ORDERED: methaDONE HCL 10 MG TABLET (FOR DETOX USE ONLY) PO ONE (15:02)
[2021-03-24] MEDS ORDERED: clonazePAM 0.5 MG ODT TABLETS SL PRN (15:02)
[2021-03-24] MEDS ORDERED: MENTHOL/PHENOL 1 EACH UD MM PRN (15:03)
[2021-03-24] MEDS ORDERED: NICOTINE 10 MG CARTRIDGE (INHALER) IH PRN (15:03)
[2021-03-24] MEDS ORDERED: METHOCARBAMOL 500 MG TABLET PO PRN (15:03)
[2021-03-24] MEDS ORDERED: MAGNESIUM HYDROX 2400MG/30ML ORAL SUSPENSION 30 ML CUP PO PRN (15:03)
[2021-03-24] MEDS ORDERED: MAG HYDROX/AL HYDROX/SIMETH 30 ML UNIT-DOSE CUP PO PRN (15:03)
[2021-03-24] MEDS ORDERED: P-EPHED 60MG/TRIPROLIDI 2.5MG TABLET PO PRN (15:03)
[2021-03-24] MEDS ORDERED: ONDANSETRON *ODT* 4 MG TABLET SL PRN (15:03)
[2021-03-24] MEDS ORDERED: ACETAMINOPHEN 325 MG TABLET (FP) PO PRN ×2 (15:03)
[2021-03-24] MEDS ORDERED: NICOTINE POLACRILEX 4 MG GUM BUC PRN (15:03)
[2021-03-24] MEDS ORDERED: BISMUTH SUBSALICYLATE 524 MG/30 ML PO PRN (15:03)
[2021-03-24] MEDS ORDERED: guaiFENesin 200 MG/10 ML 10 ML UNIT-DOSE CUPS PO PRN (15:03)
[2021-03-24] MEDS ORDERED: MAGNESIUM CITRATE 300 ML BOTTLE PO PRN (15:03)
[2021-03-24] MEDS ORDERED: IBUPROFEN 400 MG TABLET (FP) PO PRN (15:03)
[2021-03-24 15:40] VITALS: BMI 25.2
[2021-03-24] MEDS: hydrOXYzine PAMOATE 25 MG CAPSULE (FP) PO SCH ×2 (19:11→23:01)
[2021-03-24] MEDS: BUDESONIDE/FORMETEROL FUMARATE 160/4.5 mcg INHALER IH SCH (23:01)
[2021-03-24] MEDS: MELATONIN 5 MG TABLETS PO SCH (23:01)
[2021-03-24] MEDS: THIAMINE HCL 100 MG TABLET (FP) PO SCH (23:01)
[2021-03-24] MEDS: CELECOXIB 200 MG CAPSULE PO SCH (23:02)
[2021-03-25] MEDS: hydrOXYzine PAMOATE 25 MG CAPSULE (FP) PO SCH (07:09)
[2021-03-25] MEDS ORDERED: hydrOXYzine PAMOATE 25 MG CAPSULE (FP) PO PRN (08:11)
[2021-03-25] MEDS ORDERED: methaDONE HCL 10 MG TABLET (FOR DETOX USE ONLY) ONE (08:57)
[2021-03-25 10:54] LABS: HEMOGLOBIN 11.9 GM/dL (10.7-15.3); MCH 34.2 pg (25.7-33.7); MCHC 34.1 g/dl (32.0-36.0); MEAN CELL VOLUME 100.4 fl (80-96); MEAN PLT VOLUME 8.3 fl (7.5-11.1); PLATELET COUNT 319 10^3/uL (134-434); RBC 3.49 M/mm3 (3.60-5.2); RDW 12.7 % (11.6-15.6); WHITE BLOOD COUNT 6.3 K/mm3 (4.0-10.0)
[2021-03-25] MEDS: NICOTINE 21 MG/24 HOURS TOPICAL PATCH TD SCH (10:55)
[2021-03-25] MEDS: CELECOXIB 200 MG CAPSULE PO SCH ×2 (10:55→23:02)
[2021-03-25] MEDS: PRENATAL VITAMINS W/ FOLIC ACID TABLET (FP) PO SCH (10:55)
[2021-03-25] MEDS: ASPIRIN 81 MG CHEWABLE TABLETS PO SCH (10:55)
[2021-03-25 11:06] LABS: CALCIUM 8.3 mg/dL (8.5-10.1)
[2021-03-25 11:07] LABS: BLOOD UREA NITROGEN 21.9 mg/dL (7-18)
[2021-03-25 11:09] LABS: CREATININE 0.7 mg/dL (0.55-1.3)
[2021-03-25 11:11] LABS: BILIRUBIN,TOTAL 0.4 mg/dL (0.2-1); TOT PROT 5.9 g/dl (6.4-8.2)
[2021-03-25] MEDS: BUDESONIDE/FORMETEROL FUMARATE 160/4.5 mcg INHALER IH SCH ×2 (12:04→23:03)
[2021-03-25] MEDS: lamoTRIgine 25 MG TABLET PO SCH (15:13)
[2021-03-25] MEDS: busPIRone HCL 10 MG TABLET (FP) PO SCH (23:02)
[2021-03-25] MEDS: THIAMINE HCL 100 MG TABLET (FP) PO SCH (23:03)
[2021-03-25] MEDS: traZODone HCL 100 MG TABLET (FP) PO SCH (23:03)
[2021-03-25] MEDS: TOPIRAMATE 100 MG TABLET PO SCH (23:03)
[2021-03-25] MEDS: MELATONIN 5 MG TABLETS PO SCH (23:03)
[2021-03-26] MEDS: TOPIRAMATE 100 MG TABLET PO SCH ×2 (09:39→23:17)
[2021-03-26] MEDS: PRENATAL VITAMINS W/ FOLIC ACID TABLET (FP) PO SCH (09:39)
[2021-03-26] MEDS: busPIRone HCL 10 MG TABLET (FP) PO SCH ×2 (09:39→23:18)
[2021-03-26] MEDS: CELECOXIB 200 MG CAPSULE PO SCH (09:39)
[2021-03-26] MEDS: lamoTRIgine 25 MG TABLET PO SCH (09:40)
[2021-03-26] MEDS: BUDESONIDE/FORMETEROL FUMARATE 160/4.5 mcg INHALER IH SCH ×2 (09:40→23:17)
[2021-03-26] MEDS: NICOTINE 21 MG/24 HOURS TOPICAL PATCH TD SCH (09:40)
[2021-03-26] MEDS: ASPIRIN 81 MG CHEWABLE TABLETS PO SCH (09:40)
[2021-03-26] MEDS ORDERED: methaDONE HCL 10 MG TABLET (FOR DETOX USE ONLY) PO ONE (10:00)
[2021-03-26] MEDS: CELECOXIB 100 MG CAPSULE PO SCH ×2 (10:21→23:17)
[2021-03-26] MEDS: MELATONIN 5 MG TABLETS PO SCH (23:18)
[2021-03-26] MEDS: traZODone HCL 100 MG TABLET (FP) PO SCH (23:18)
[2021-03-26] MEDS: THIAMINE HCL 100 MG TABLET (FP) PO SCH (23:19)
[2021-03-27] MEDS ORDERED: methaDONE HCL 10 MG TABLET (FOR DETOX USE ONLY) ONE (09:45)
[2021-03-27] MEDS: ASPIRIN 81 MG CHEWABLE TABLETS PO SCH (10:37)
[2021-03-27] MEDS: busPIRone HCL 10 MG TABLET (FP) PO SCH ×2 (10:37→22:17)
[2021-03-27] MEDS: NICOTINE 21 MG/24 HOURS TOPICAL PATCH TD SCH (10:37)
[2021-03-27] MEDS: PRENATAL VITAMINS W/ FOLIC ACID TABLET (FP) PO SCH (10:37)
[2021-03-27] MEDS: BUDESONIDE/FORMETEROL FUMARATE 160/4.5 mcg INHALER IH SCH ×2 (10:37→22:16)
[2021-03-27] MEDS: lamoTRIgine 25 MG TABLET PO SCH (10:39)
[2021-03-27] MEDS: CELECOXIB 100 MG CAPSULE PO SCH ×2 (10:39→22:16)
[2021-03-27] MEDS: TOPIRAMATE 100 MG TABLET PO SCH ×2 (10:40→22:16)
[2021-03-27] MEDS: THIAMINE HCL 100 MG TABLET (FP) PO SCH (22:16)
[2021-03-27] MEDS: MELATONIN 5 MG TABLETS PO SCH (22:17)
[2021-03-27] MEDS: traZODone HCL 100 MG TABLET (FP) PO SCH (22:17)
[2021-03-28 08:49] VITALS: BP 107/72; PULSE 60; TEMP 96.9
[2021-03-28] MEDS: CELECOXIB 100 MG CAPSULE PO SCH (09:23)
[2021-03-28] MEDS: busPIRone HCL 10 MG TABLET (FP) PO SCH (09:24)
[2021-03-28] MEDS: ASPIRIN 81 MG CHEWABLE TABLETS PO SCH (09:24)
[2021-03-28] MEDS: TOPIRAMATE 100 MG TABLET PO SCH (09:24)
[2021-03-28] MEDS: lamoTRIgine 25 MG TABLET PO SCH (09:24)
[2021-03-28] MEDS: NICOTINE 21 MG/24 HOURS TOPICAL PATCH TD SCH (09:25)
[2021-03-28] MEDS: PRENATAL VITAMINS W/ FOLIC ACID TABLET (FP) PO SCH (09:25)
[2021-03-28] MEDS: BUDESONIDE/FORMETEROL FUMARATE 160/4.5 mcg INHALER IH SCH (09:25)
[2021-03-28] MEDS ORDERED: methaDONE HCL 10 MG TABLET (FOR DETOX USE ONLY) PO ONE (10:00)
== END 2021-03-28 10:05 | disposition home or self-care (01) | DRG 897 ==
LOC: YASAS 13:36 → UNDOADMIN 18:20 → Y3N 18:20
PROVIDERS: ADMIT Allergy & Immunology; ATTEND Allergy & Immunology
PROC: HZ2ZZZZ Detoxification Services for Substance Abuse Treatment (ICD-10-PCS; principal; 2021-03-24)
DX: F11.23 Opioid dependence with withdrawal (principal); F14.20 Cocaine dependence, uncomplicated; F17.213 Nicotine dependence, cigarettes, with withdrawal; F31.9 Bipolar disorder, unspecified; G62.9 Polyneuropathy, unspecified; J44.9 Chronic obstructive pulmonary disease, unspecified; H91.92 Unspecified hearing loss, left ear; M54.5 Low back pain; G89.29 Other chronic pain; M06.9 Rheumatoid arthritis, unspecified; Z62.810 Personal history of physical and sexual abuse in childhood; R26.89 Other abnormalities of gait and mobility; Z99.89 Dependence on other enabling machines and devices; Z86.19 Personal history of other infectious and parasitic diseases; Z56.0 Unemployment, unspecified; Z91.018 Allergy to other foods
CPT/HCPCS: 36415; 80053; 85027; 86593; 86780; 93005; 93010; C9803; U0003; U0005

== ENCOUNTER 2021-10-07 13:34 | Inpatient (IN) | payer OTHER ==
[2021-10-07] MEDS ORDERED: methaDONE HCL 10 MG TABLET (FOR DETOX USE ONLY) PO ONE ×2 (15:14→18:45)
[2021-10-07] MEDS ORDERED: NICOTINE 10 MG CARTRIDGE (INHALER) IH PRN (15:14)
[2021-10-07] MEDS ORDERED: BISMUTH SUBSALICYLATE 262 MG/15 ML BTL PO PRN (15:14)
[2021-10-07] MEDS ORDERED: IBUPROFEN 400 MG TABLET (FP) PO PRN (15:14)
[2021-10-07] MEDS ORDERED: MENTHOL/PHENOL 1 EACH UD MM PRN (15:14)
[2021-10-07] MEDS ORDERED: LOPERAMIDE HCL 2 MG CAPSULE PO PRN (15:14)
[2021-10-07] MEDS ORDERED: ONDANSETRON *ODT* 4 MG TABLET SL PRN (15:14)
[2021-10-07] MEDS ORDERED: MAG HYDROX/AL HYDROX/SIMETH 30 ML UNIT-DOSE CUP PO PRN (15:14)
[2021-10-07] MEDS ORDERED: ACETAMINOPHEN 325 MG TABLET (FP) PO PRN (15:14)
[2021-10-07] MEDS ORDERED: MAGNESIUM HYDROX 2400MG/30ML ORAL SUSPENSION 30 ML CUP PO PRN (15:14)
[2021-10-07] MEDS ORDERED: MAGNESIUM CITRATE 300 ML BOTTLE PO PRN (15:14)
[2021-10-07] MEDS ORDERED: ALBUTEROL SO4 HFA INHALER IH PRN (15:16)
[2021-10-07] MEDS ORDERED: CYCLOBENZAPRINE HCL 10 MG TABLET (FP) PO PRN (15:16)
[2021-10-07 15:52] VITALS: BMI 26.6
[2021-10-07] MEDS: hydrOXYzine PAMOATE 25 MG CAPSULE (FP) PO SCH ×2 (18:43→23:24)
[2021-10-07] MEDS: PRENATAL VITAMINS W/ FOLIC ACID TABLET (FP) PO SCH (18:44)
[2021-10-07] MEDS: NICOTINE 21 MG/24 HOURS TOPICAL PATCH TD SCH (18:44)
[2021-10-07] MEDS ORDERED: CELECOXIB 200 MG CAPSULE PO SCH (22:00)
[2021-10-07] MEDS: MELATONIN 5 MG TABLETS PO SCH (23:24)
[2021-10-07] MEDS: THIAMINE HCL 100 MG TABLET (FP) PO SCH (23:24)
[2021-10-07] MEDS: BUDESONIDE/FORMETEROL FUMARATE 160/4.5 mcg INHALER IH SCH (23:24)
[2021-10-07] MEDS: PREGABALIN 50 MG CAPSULE PO SCH (23:24)
[2021-10-08] MEDS: PREGABALIN 50 MG CAPSULE PO SCH ×3 (05:48→22:39)
[2021-10-08] MEDS: hydrOXYzine PAMOATE 25 MG CAPSULE (FP) PO SCH ×5 (05:48→22:39)
[2021-10-08] MEDS ORDERED: methaDONE HCL 10 MG TABLET (FOR DETOX USE ONLY) ONE (09:28)
[2021-10-08] MEDS ORDERED: CELECOXIB 100 MG CAPSULE PO SCH (09:29)
[2021-10-08] MEDS: PRENATAL VITAMINS W/ FOLIC ACID TABLET (FP) PO SCH (10:46)
[2021-10-08] MEDS: ASPIRIN 81 MG CHEWABLE TABLETS PO SCH (10:47)
[2021-10-08] MEDS: METHOCARBAMOL 500 MG TABLET PO PRN (10:47)
[2021-10-08] MEDS: NICOTINE 21 MG/24 HOURS TOPICAL PATCH TD SCH (10:48)
[2021-10-08] MEDS: BUDESONIDE/FORMETEROL FUMARATE 160/4.5 mcg INHALER IH SCH ×2 (10:48→23:49)
[2021-10-08] MEDS: CELECOXIB 100 MG CAPSULE PO SCH ×2 (11:08→22:40)
[2021-10-08 12:45] LABS: HEMATOCRIT 35.1 % (32.4-45.2); HEMOGLOBIN 11.3 GM/dL (10.7-15.3); MCH 32.4 pg (25.7-33.7); MCHC 32.1 g/dl (32.0-36.0); MEAN CELL VOLUME 100.7 fl (80-96); PLATELET COUNT 262 10^3/uL (134-434); RBC 3.48 M/mm3 (3.60-5.2); RDW 13.2 % (11.6-15.6); WHITE BLOOD COUNT 5.5 K/mm3 (4.0-10.0)
[2021-10-08 12:46] LABS: MEAN PLT VOLUME 8.9 fl (7.5-11.1)
[2021-10-08 13:11] LABS: ALBUMIN 3.2 g/dl (3.4-5.0); BLOOD UREA NITROGEN 17.9 mg/dL (7-18); CALCIUM 9.1 mg/dL (8.5-10.1)
[2021-10-08 13:14] LABS: CREATININE 0.7 mg/dL (0.55-1.3)
[2021-10-08 13:16] LABS: BILIRUBIN,TOTAL 0.6 mg/dL (0.2-1)
[2021-10-08] MEDS: MELATONIN 5 MG TABLETS PO SCH (22:39)
[2021-10-08] MEDS: THIAMINE HCL 100 MG TABLET (FP) PO SCH (22:40)
[2021-10-08] MEDS: cloNIDine HCL 0.1 MG TABLET PO PRN (22:40)
[2021-10-08] MEDS: ACETAMINOPHEN 325 MG TABLET (FP) PO PRN (22:42)
[2021-10-09] MEDS: hydrOXYzine PAMOATE 25 MG CAPSULE (FP) PO SCH ×5 (05:59→22:36)
[2021-10-09] MEDS: PREGABALIN 50 MG CAPSULE PO SCH ×3 (05:59→22:36)
[2021-10-09] MEDS ORDERED: methaDONE HCL 10 MG TABLET (FOR DETOX USE ONLY) PO ONE (10:00)
[2021-10-09] MEDS: CELECOXIB 100 MG CAPSULE PO SCH ×2 (10:58→22:36)
[2021-10-09] MEDS: PRENATAL VITAMINS W/ FOLIC ACID TABLET (FP) PO SCH (10:58)
[2021-10-09] MEDS: ASPIRIN 81 MG CHEWABLE TABLETS PO SCH (10:58)
[2021-10-09] MEDS: METHOCARBAMOL 500 MG TABLET PO PRN ×2 (10:59→18:28)
[2021-10-09] MEDS: NICOTINE 21 MG/24 HOURS TOPICAL PATCH TD SCH (10:59)
[2021-10-09] MEDS: BUDESONIDE/FORMETEROL FUMARATE 160/4.5 mcg INHALER IH SCH ×2 (10:59→23:55)
[2021-10-09] MEDS: cloNIDine HCL 0.1 MG TABLET PO PRN ×2 (18:28→22:38)
[2021-10-09] MEDS: MELATONIN 5 MG TABLETS PO SCH (22:35)
[2021-10-09] MEDS: THIAMINE HCL 100 MG TABLET (FP) PO SCH (22:36)
[2021-10-09] MEDS: ACETAMINOPHEN 325 MG TABLET (FP) PO PRN (22:37)
[2021-10-10] MEDS: PREGABALIN 50 MG CAPSULE PO SCH ×3 (05:34→23:00)
[2021-10-10] MEDS: hydrOXYzine PAMOATE 25 MG CAPSULE (FP) PO SCH ×5 (05:35→23:00)
[2021-10-10] MEDS ORDERED: methaDONE HCL 10 MG TABLET (FOR DETOX USE ONLY) ONE (09:33)
[2021-10-10] MEDS: PRENATAL VITAMINS W/ FOLIC ACID TABLET (FP) PO SCH (10:27)
[2021-10-10] MEDS: METHOCARBAMOL 500 MG TABLET PO PRN ×3 (10:28→23:00)
[2021-10-10] MEDS: ASPIRIN 81 MG CHEWABLE TABLETS PO SCH (10:28)
[2021-10-10] MEDS: CELECOXIB 100 MG CAPSULE PO SCH ×2 (10:28→23:00)
[2021-10-10] MEDS: NICOTINE 21 MG/24 HOURS TOPICAL PATCH TD SCH (10:29)
[2021-10-10] MEDS: BUDESONIDE/FORMETEROL FUMARATE 160/4.5 mcg INHALER IH SCH ×2 (10:29→23:04)
[2021-10-10] MEDS: ACETAMINOPHEN 325 MG TABLET (FP) PO PRN ×2 (10:31→23:01)
[2021-10-10] MEDS: THIAMINE HCL 100 MG TABLET (FP) PO SCH (23:00)
[2021-10-10] MEDS: MELATONIN 5 MG TABLETS PO SCH (23:00)
[2021-10-11] MEDS: PREGABALIN 50 MG CAPSULE PO SCH ×2 (06:30→14:23)
[2021-10-11] MEDS: hydrOXYzine PAMOATE 25 MG CAPSULE (FP) PO SCH ×4 (06:30→18:51)
[2021-10-11] MEDS ORDERED: methaDONE HCL 10 MG TABLET (FOR DETOX USE ONLY) PO ONE (10:00)
[2021-10-11] MEDS: BUDESONIDE/FORMETEROL FUMARATE 160/4.5 mcg INHALER IH SCH (10:02)
[2021-10-11] MEDS: CELECOXIB 100 MG CAPSULE PO SCH (10:03)
[2021-10-11] MEDS: PRENATAL VITAMINS W/ FOLIC ACID TABLET (FP) PO SCH (10:03)
[2021-10-11] MEDS: ASPIRIN 81 MG CHEWABLE TABLETS PO SCH (10:03)
[2021-10-11] MEDS: NICOTINE 21 MG/24 HOURS TOPICAL PATCH TD SCH (10:04)
[2021-10-11 13:12] VITALS: TEMP 98
[2021-10-11 17:58] VITALS: BP 125/84; PULSE 103
== END 2021-10-11 17:15 | disposition home or self-care (01) | DRG 897 ==
LOC: YASAS 13:34 → Y6N 17:45 → UNDODISIN 10-08 09:54
PROVIDERS: ADMIT Allergy & Immunology; ATTEND Allergy & Immunology
PROC: HZ2ZZZZ Detoxification Services for Substance Abuse Treatment (ICD-10-PCS; principal; 2021-10-07)
DX: F11.23 Opioid dependence with withdrawal (principal); F14.20 Cocaine dependence, uncomplicated; F17.213 Nicotine dependence, cigarettes, with withdrawal; G62.9 Polyneuropathy, unspecified; H91.92 Unspecified hearing loss, left ear; J44.9 Chronic obstructive pulmonary disease, unspecified; M06.9 Rheumatoid arthritis, unspecified; M54.50 Low back pain, unspecified; G89.29 Other chronic pain; A53.0 Latent syphilis, unspecified as early or late; Z86.19 Personal history of other infectious and parasitic diseases; Z99.89 Dependence on other enabling machines and devices
CPT/HCPCS: 36415; 80053; 85027; 86593; 86780; C9803; J0735; U0003; U0005